=== PATIENT | male | born 1980 | race Two or more races ===

== ENCOUNTER 2019-11-12 13:55 | Emergency (ER) | payer MEDICAID ==
[~2019-11-12] VITALS: Ht 157.5 cm; Wt 85.0 kg
[2019-11-12] MEDS ORDERED: IBUPROFEN 800MG TABLET PO ONE (16:15)
[2019-11-12] MEDS ORDERED: ACETAMINOPHEN 325MG TABLET PO ONE (16:15)
[2019-11-12] MEDS ORDERED: ONDANSETRON HCL 4MG/2ML INJ IV STA (16:26)
[2019-11-12] MEDS ORDERED: SODIUM CHLORIDE 0.9% 1,000 ML IV ONE (16:26)
[2019-11-12] MEDS ORDERED: OSELTAMIVIR 75MG CAPSULE PO ONE (17:00)
[2019-11-12] MEDS ORDERED: CEFTRIAXONE 1 G PREMIX 50 ML IV ONE (17:00)
[2019-11-12 18:08] VITALS: BP 108/65
== END 2019-11-12 18:08 | disposition home or self-care (01) ==
LOC: EDBD 14:51 → ER 14:51
DX: J10.1 Influenza due to other identified influenza virus with other respiratory manifestations (principal); R50.9 Fever, unspecified; R19.7 Diarrhea, unspecified
CPT/HCPCS: 71045; 87804; 96365; 96375; 99284; J0696; J2405; J7030